=== PATIENT | female | born 1990 | race Caucasian/White ===

== ENCOUNTER → 2017-09-22 | Outpatient (CLI) | payer MEDICAID | END | disposition home or self-care (01) | LOC: CFH 14:41 | PROVIDERS: ATTEND Family Medicine | DX: M51.26 Other intervertebral disc displacement, lumbar region (principal) | CPT/HCPCS: 72148 ==

== ENCOUNTER → 2018-03-09 | Outpatient (CLI) | payer MEDICAID | END | disposition home or self-care (01) | LOC: RAD 14:03 | PROVIDERS: ATTEND Family Medicine | DX: M25.561 Pain in right knee (principal); M54.9 Dorsalgia, unspecified ==

== ENCOUNTER 2021-02-21 14:36 | Emergency (ER) | payer OTHER, MEDICAID ==
[~2021-02-21] VITALS: Ht 160 cm; Wt 90.8 kg
[2021-02-21] MEDS ORDERED: SODIUM CHLORIDE 0.9% 1,000ML IVBOLUS ONE (15:30)
[2021-02-21] MEDS ORDERED: SODIUM CHLORIDE FLUSH 10ML SYR IVF ONE (15:30)
[2021-02-21 15:48] LABS: BASOPHILS % (AUTO) 1 % (0-1); EOSINOPHILS % (AUTO) 0 % (1-7); LYMPHOCYTES % (AUTO) 18 % (22-44); MEAN CORPUSCULAR HEMOGLOBIN 28.6 pg (27.0-34.8); MEAN PLATELET VOLUME 7.2 fL (7.4-10.4); MONOCYTES % (AUTO) 8 % (2-9); NEUTROPHILS % (AUTO) 74 % (42-75); PLATELET COUNT 314 x10^3/uL (130-400); RED CELL DISTRIBUTION WIDTH 13.9 % (9.6-15.2)
[2021-02-21 15:52] LABS: ALANINE AMINOTRANSFERASE 55 U/L (12-78); ALBUMIN 3.1 g/dL (3.4-5.0); ANION GAP 10 mmol/L (5-15); CALCIUM 9.2 mg/dL (8.5-10.1); CHLORIDE 102 mmol/L (98-107); CREATININE 0.55 mg/dL (0.55-1.02)
[2021-02-21 15:56] VITALS: BP 117/84
[2021-02-21 15:56] LABS: ALKALINE PHOSPHATASE 103 U/L (45-117); BILIRUBIN,TOTAL 0.5 mg/dL (0.2-1.0); TOTAL PROTEIN 7.9 g/dL (6.4-8.2)
--- NOTE | 2021-02-21 15:56 | NUR ---
PT UPRIGHT ON GURNEY AWAKE & COMFORTABLE, RESPONDS APPROP TO STAFF, NAD, COMFORT MEASURES PROVIDED, CALL LIGHT WITHIN REACH.
[2021-02-21] MEDS ORDERED: POTASSIUM CHLORIDE 20 MEQ TAB.ER.PRT ONE (16:10)
[2021-02-21] MEDS ORDERED: POTASSIUM CHLORIDE 20 MEQ PACKET ONE (16:14)
[2021-02-21 16:22] LABS: MICROSCOPIC INDICATED
[2021-02-21] MEDS ORDERED: POTASSIUM CHLORIDE 20 MEQ PACKET PO ONE (16:30)
--- NOTE | 2021-02-21 16:31 | NUR ---
Patient given discharge instructions and they have confirmed that they understand the instructions. Patient ambulatory with steady gait. NAD, all questions answered appropriately, denies additional needs at this time. No personal belongings left in room after discharge.
== END 2021-02-21 16:37 | disposition home or self-care (01) ==
LOC: ED 16:31
DX: U07.1 COVID-19 (principal); J40 Bronchitis, not specified as acute or chronic; K52.9 Noninfective gastroenteritis and colitis, unspecified; E87.6 Hypokalemia
CPT/HCPCS: 36415; 71045; 80053; 81001; 83605; 84145; 84703; 85025; 93005; 96360; 99285; J7030

== ENCOUNTER 2021-03-25 05:18 | Day surgery (SDC) | payer OTHER, MEDICAID ==
[~2021-03-25] VITALS: Ht 160 cm; Wt 94.9 kg
[2021-03-25] MEDS ORDERED: CHLORHEXIDINE 15 ML UDC PO ONE (06:00)
[2021-03-25] MEDS ORDERED: PLEASE ENTER HEIGHT AND WEIGHT MC SCH (06:00)
[2021-03-25] MEDS ORDERED: LACTATED RINGERS 1,000 ML IV SCH (06:00)
[2021-03-25] MEDS ORDERED: EPINEPHRINE 1 MG/ML, 1ML ONE (06:16)
[2021-03-25] MEDS ORDERED: BUPIVACAINE/PF 0.25% ONE ×2 (06:16→06:26)
[2021-03-25 06:17] VITALS: BP 121/81
[2021-03-25] MEDS ORDERED: OMEP-110 PO (06:17)
[2021-03-25] MEDS ORDERED: ZINC50TA10 PO (06:17)
[2021-03-25] MEDS ORDERED: CHOL500050 PO (06:17)
[2021-03-25] MEDS ORDERED: ASCO100018 PO (06:17)
[2021-03-25] MEDS ORDERED: FLUO20CA23 PO (06:17)
[2021-03-25] MEDS ORDERED: CETI10TA18 PO (06:17)
[2021-03-25] MEDS ORDERED: FENTANYL PF 250 MCG/5ML ONE (06:23)
[2021-03-25] MEDS ORDERED: MIDAZOLAM 1 MG/ML, 2ML ONE (06:23)
[2021-03-25] MEDS ORDERED: LIDOCAINE-MPF 2% ,5ML ONE (06:25)
[2021-03-25 06:41] LABS: HCG UR SG 1.011 (1.003-1.030)
[2021-03-25] MEDS ORDERED: LIDOCAINE/PF 1%, 30ML ONE (06:56)
[2021-03-25] MEDS ORDERED: BUPIVACAINE/PF 0.5% ONE (06:56)
[2021-03-25] MEDS ORDERED: HALOPERIDOL 5 MG/ML IV PRN (07:00)
[2021-03-25] MEDS ORDERED: ACETAMINOPHEN 325 MG TABLET PO PRN (07:00)
[2021-03-25] MEDS ORDERED: LABETALOL 5MG/ML, 20ML IV PRN (07:00)
[2021-03-25] MEDS ORDERED: morphine SULFATE 10 MG/ML, 1ML IVPush PRN (07:00)
[2021-03-25] MEDS ORDERED: hydrALAzine 20 MG/ML, 1ML IV PRN (07:00)
[2021-03-25] MEDS ORDERED: OXYcodone 5 MG/5 ML ORAL.SOL UDC PO PRN (07:00)
[2021-03-25] MEDS ORDERED: PROMETHAZINE 25 MG/ML, 1ML IVPush PRN (07:00)
[2021-03-25] MEDS ORDERED: MEPERIDINE/PF 25MG/0.5ML IVPush PRN (07:00)
[2021-03-25] MEDS ORDERED: HYDROmorphone 1 MG/ML, 1ML INJ IVPush PRN (07:00)
[2021-03-25] MEDS ORDERED: PROPOFOL 10 MG/ML, 20ML ONE (07:01)
[2021-03-25] MEDS ORDERED: CEFAZOLIN 1,000 MG ONE (07:01)
[2021-03-25] MEDS ORDERED: DEXAMETHASONE 4 MG/ML, 1ML ONE (07:01)
[2021-03-25] MEDS ORDERED: ONDANSETRON 2MG/ML, 2ML ONE (07:01)
[2021-03-25] MEDS ORDERED: FENTANYL PF 100 MCG/2ML ONE ×3 (07:42→09:24)
[2021-03-25] MEDS ORDERED: KETOROLAC 30 MG/1 ML ONE (08:28)
[2021-03-25] MEDS ORDERED: ACETAMINOPHEN 325 MG TABLET ONE (09:24)
[2021-03-25] MEDS ORDERED: OXYcodone 5 MG/5 ML ORAL.SOL UDC ONE (09:24)
[2021-03-25] MEDS ORDERED: ACETAMINOPHEN 650 MG/20.3 ML UDC ONE (09:25)
[2021-03-25] MEDS: FENTANYL PF 100 MCG/2ML IV PRN ×3 (09:30→09:50)
== END 2021-03-25 11:20 | disposition home or self-care (01) ==
LOC: OUT 05:18
PROVIDERS: ATTEND Orthopaedic Surgery
DX: M25.372 Other instability, left ankle (principal); S93.432A Sprain of tibiofibular ligament of left ankle, initial encounter; S86.312A Strain of muscle(s) and tendon(s) of peroneal muscle group at lower leg level, left leg, initial encounter; S93.492A Sprain of other ligament of left ankle, initial encounter; M89.8X7 Other specified disorders of bone, ankle and foot; K21.9 Gastro-esophageal reflux disease without esophagitis; Z20.822 Contact with and (suspected) exposure to COVID-19; Z79.899 Other long term (current) drug therapy; X58.XXXA Exposure to other specified factors, initial encounter; Y93.89 Activity, other specified; Y92.89 Other specified places as the place of occurrence of the external cause; Y99.8 Other external cause status
CPT/HCPCS: 27658; 27695; 27829; 29898; 73600; 81025; 87635; C1713; J0171; J0690; J1100; J1885; J2250; J2405; J2704; J3010; J7120; 76000